=== PATIENT | female | born 1950 | race Caucasian/White ===

== ENCOUNTER → 2024-10-12 | Outpatient (REF) | payer MEDICARE, MEDICAID | LOC: LAB 15:23 | DX: J11.00 Influenza due to unidentified influenza virus with unspecified type of pneumonia (principal) ==

== ENCOUNTER → 2024-11-01 | Outpatient (REF) | payer MEDICARE, MEDICAID ==
[2024-11-01 14:47] LABS: BASO # 0.04 K/mm3 (0.02-0.10); EOS # 0.07 K/mm3 (0.04-0.40); EOS % 0.6 % (1.0-5.0); HEMATOCRIT 45.9 % (37.0-47.0); HEMOGLOBIN 14.2 g/dL (12.5-16.0); LYMPH# 1.78 K/mm3 (1.50-4.00); MEAN CELL VOLUME 100 fl (78-100); MEAN CORPUSCULAR HEMOGLOBIN 31 pg (27-31); MEAN CORPUSCULAR HGB CONC 31 g/dL (33-37); MEAN PLATELET VOLUME 9.7 fl (7.4-10.4); MONO # 0.93 K/mm3 (0.20-0.80); NEU # 8.11 K/mm3 (1.40-6.50); PLATELET COUNT 347 K/mm3 (130-400); RED BLOOD COUNT 4.61 M/mm3 (4.10-5.30)
== END ==
LOC: LAB 14:15
DX: M05.79 Rheumatoid arthritis with rheumatoid factor of multiple sites without organ or systems involvement (principal); M81.0 Age-related osteoporosis without current pathological fracture; D89.2 Hypergammaglobulinemia, unspecified; J84.9 Interstitial pulmonary disease, unspecified; M15.9 Polyosteoarthritis, unspecified; R76.8 Other specified abnormal immunological findings in serum; M79.7 Fibromyalgia; Z91.199 Patient's noncompliance with other medical treatment and regimen due to unspecified reason; Z79.899 Other long term (current) drug therapy